=== PATIENT | female | born 1955 | race Caucasian/White ===

== ENCOUNTER 2019-07-09 11:13 | Emergency (ER) | payer OTHER ==
[~2019-07-09] VITALS: Ht 160 cm; Wt 60.9 kg
[~2019-07-09 11:13] MED LIST: CEPHALEXIN500 M1 PO; PROVENTIL0.09 MG/A1 IH; VENTOLIN0.09 MG IH
[2019-07-09] MEDS ORDERED: CEPHALEXIN500 M1 PO (11:25)
[2019-07-09 11:57] LABS: BASO % 0.4 % (0.0-2.0); EOS # 0.1 (0.0-0.7); EOS % 0.9 % (0-4.0); GRAN # 6.2 (1.4-6.5); GRAN % 79.3 % (42.2-75.2); HEMATOCRIT 37.5 % (37.0-47.0); HEMOGLOBIN 12.4 g/dl (12.5-16.0); LYMPH # 0.8 (1.2-3.4); LYMPH % 9.8 % (20.0-51.0); MEAN CELL VOLUME 97 fl (80.0-100.0); MEAN CORPUSCULAR HEMOGLOBIN 32 pg (27.0-31.0); MEAN CORPUSCULAR HGB CONC 33 g/dl (33.0-37.0); MEAN PLATELET VOLUME 9.1 fl (7.4-10.4); MONO # 0.7 (0.1-0.6); MONO % 9.3 % (1.7-9.3); PLATELET COUNT 325 K/mm3 (130-400); RED BLOOD COUNT 3.87 M/mm3 (4.10-5.30); REDCELL DISTRIBUTION WIDTH-CV 13.3 % (11.5-14.5)
[2019-07-09 12:36] LABS: ALBUMIN 3.8 gm/dL (3.5-5.0); BILIRUBIN,TOTAL 0.6 mg/dL (0.0-1.0); C-REACTIVE PROTEIN 3.5 mg/dL (0.0-0.9); CALCIUM 9.2 mg/dL (8.4-10.2); CREATININE, serum 0.62 (0.52-1.25); POTASSIUM 4.3 mmol/L (3.4-5.0)
[2019-07-09] MEDS ORDERED: DOXYCYCLINE 10100 MG PO (12:48)
[2019-07-09 14:20] VITALS: BP 123/77; PULSE 91; TEMP 98.4
== END 2019-07-09 14:20 | disposition home or self-care (01) ==
LOC: COL.ER 11:13
PROVIDERS: Physician Assistant
DX: L03.114 Cellulitis of left upper limb (principal)
CPT/HCPCS: J7030